=== PATIENT | male | born 1935 | race Caucasian/White ===

== ENCOUNTER → 2019-09-07 14:03 | Outpatient (CLI) | payer MEDICARE, OTHER, SELFPAY ==
[2019-09-07 15:00] LABS: Hematocrit 36.1 % (41-53); Hemoglobin 12.3 g/dL (13.5-17.5); Mean Corpuscular HGB Conc 34.1 % (30-36); Mean Corpuscular Hemoglobin 30.7 PG (26-34); Mean Corpuscular Volume 90.1 fL (80-100); Platelet Count 177 X10^3/uL (150-400); Red Blood Cell Count 4.01 X10^6/uL (4.5-5.9); Red Cell Distribution Width 12.3 % (11.6-14.8)
[2019-09-07 15:59] LABS: Alanine Aminotransferase 25 IU/L (<50); Albumin 4.4 g/dL (3.5-5.0); Albumin Globulin Ratio 1.5 (1.0-2.8); Alkaline Phosphatase 79 U/L (38-126); Aspartate Aminotransferase 24 IU/L (17-59); BUN Creatinine Ratio 23.6 (6-22); Bilirubin Total 0.6 mg/dL (0.2-1.3); Blood Urea Nitrogen 17 mg/dL (9-20); Calcium 10.4 mg/dL (8.4-10.2); Carbon Dioxide 27 mmol/L (22-32); Chloride 94 mmol/L (98-107); Estimated Glomerular Filt Rate > 60.0 mL/min (>60); Glucose 138 mg/dL (80-110); HEMOLYSIS < 15 (0-50); Potassium 4.5 mmol/L (3.4-5.1); Sodium 134 mmol/L (137-145); Total Protein 7.4 g/dL (6.3-8.2)
[2019-09-07 16:44] LABS: Bacteria Urine None Seen
[2019-09-07 17:38] LABS: Appearance Urine UA CLEAR; Bilirubin Urine UA NEGATIVE (NEGATIVE); Color Urine UA YELLOW; Glucose Urine UA NEGATIVE (Negative); Ketones Urine UA TRACE (NEGATIVE); Leukocyte Esterase Urine UA NEGATIVE (NEGATIVE); Nitrite Urine UA NEGATIVE (Negative); Occult Blood Urine UA TRACE-LYSED (Negative); Protein Urine UA NEGATIVE (Negative); Urobilinogen Urine UA 0.2 E.U./dL (0.2); pH Urine UA 6.5 (4.5-8.0)
[2019-09-07 17:51] LABS: RBC Urine 1-5/HPF (0-5/HPF); WBC Urine 0-1/HPF (0-5/HPF)
[2019-09-07 17:52] LABS: Culture Indicated Urine Cult Not Indicated
== END ==
PROVIDERS: PCP Nurse Practitioner Family; Referring Provider Nurse Practitioner Family; Visit Provider Nurse Practitioner Family
DX: R14.0 Abdominal distension (gaseous) (principal)
CPT/HCPCS: 36415; 80053; 81001; 85027

== ENCOUNTER → 2019-09-10 13:43 | Outpatient (CLI) | payer MEDICARE, OTHER, SELFPAY ==
--- NOTE | 2019-09-10 13:45 | DI.US.S_ITS ---
PROCEDURE: US ABDOMEN COMPLETE INDICATIONS: BLOATING,GAS,DISCOMFORT TECHNIQUE: Real-time scanning was performed of the abdominal and retroperitoneal organs, with image documentation. COMPARISON: None. FINDINGS: Liver: Liver is normal in size and homogeneous in echotexture. Hypervascularity is noted within the lovely hepatis region. Gallbladder: Likely sludge is seen within the gallbladder. The gallbladder wall is not thickened, measuring 3 mm or less. No specific pericholecystic fluid is seen. The sonographic Edmonds sign is negative. Biliary ducts: Not well-seen. Pancreas: Visualized portions of the pancreas are sonographically normal. Spleen: Spleen is normal in size and homogeneous in echotexture. Kidneys: Kidneys are normal in size and echotexture. Right kidney measures 11.6 cm long; left kidney measures 11.9 cm long. No hydronephrosis or nephrolithiasis. No solid masses. A lobular cyst can be seen on the mid to lower pole of the left kidney measuring up to 2.5 cm. Aorta: Visualized aorta is normal in caliber at less than 3 cm. Iliacs: Proximal common iliac arteries are normal in caliber at less than 2.5 cm. IVC: Intrahepatic inferior vena cava is patent. Miscellaneous: No free abdominal fluid. Within the subxiphoid region, there is a mass seen that measures approximately 8 x 5.5 x 5 cm. IMPRESSION: There is an apparent 8 cm mass seen within the subxiphoid region, which may be related to a pancreatic neoplasm. A dedicated pancreas protocol CT is now recommended for further evaluation. A lobular cyst of the left kidney can be seen. Likely sludge can be seen within the gallbladder, without additional sonographic signs sinus. Dictated by: Sathya Coleman M.D. on 09/10/2019 at 15:33 Approved by: Sathya Coleman M.D. on 09/10/2019 at 15:37
== END ==
PROVIDERS: PCP Nurse Practitioner Family; Referring Provider Nurse Practitioner Family; Visit Provider Nurse Practitioner Family
DX: R14.0 Abdominal distension (gaseous) (principal); R19.09 Other intra-abdominal and pelvic swelling, mass and lump; N28.1 Cyst of kidney, acquired
CPT/HCPCS: 76700

== ENCOUNTER → 2019-09-14 12:46 | Outpatient (CLI) | payer MEDICARE, OTHER, SELFPAY ==
--- NOTE | 2019-09-14 13:37 | DI.CT.S_ITS ---
PROCEDURE: CT ABDOMEN W CON INDICATIONS: abnormal US mid abd pain TECHNIQUE: After the administration of intravenous contrast, 5 mm thick sections acquired from the diaphragm to the iliac crests during the arterial and portal venous phases. 3 mm coronal and sagittal reformats were performed. For radiation dose reduction, the following was used: automated exposure control, adjustment of mA and/or kV according to patient size. COMPARISON: [facility], US, US ABDOMEN COMPLETE, 09/10/2019, 13:52. FINDINGS: Image quality: Excellent. Lung bases: Lung bases are clear. Heart size is normal. Solid organs: There is a large lobulated hypoenhancing centrally necrotic mass centered within the pancreatic head measuring approximately 7.5 x 6.8 x 7.4 cm in dimension. There is atrophy of the pancreatic body and tail with associated pancreatic ductal dilatation. There is intra-and extrahepatic biliary ductal dilatation secondary to mass effect on the common bile duct. The extrahepatic ducts measure up to 0.8 cm. The mass encases the celiac, hepatic, and splenic arteries with associated mild luminal narrowing. The mass also encases superior mesenteric, portal, and splenic veins at their confluence with associated occlusion. There is associated cavernous transformation in the lovely hepatis with reconstitution of the right and left portal veins. The splenic vein is reconstituted with left abdominal varices. The pancreatic mass also demonstrates extension to the gastric antrum with suspected invasion. Superiorly, there is extension to the inferior left hepatic lobe with effacement of the intervening fat plane and associated peripheral hyper enhancement in the liver suggestive of invasion. The liver demonstrates heterogeneous enhancement during the arterial phase likely due to narrowing of the hepatic artery, portal vein occlusion, and cavernous transformation. There is a small hypoattenuating lesion inferiorly in segment 6 of the right hepatic lobe measuring up to 1.4 x 1.3 cm suspicious for metastatic disease. A small cyst is demonstrated in the right hepatic lobe superiorly. The spleen is enlarged, measuring up to 13.5 cm. There is thickening of the left adrenal gland. Kidneys demonstrate no hydronephrosis. There are bilateral renal cysts including left parapelvic cysts. Peritoneum and bowel: Bowel loops demonstrate normal wall thickness and caliber. No free fluid or air. Nodes and vessels: Multiple prominent mesenteric lymph nodes are demonstrated in the upper abdomen measuring up to 0.8 cm in short axis. Aorta and inferior vena cava are normal in size. Miscellaneous: No ventral hernias. IMPRESSION: 1. Large hypoenhancing centrally necrotic pancreatic head mass is consistent with pancreatic adenocarcinoma. 2. Atrophy of the pancreatic body and tail with associated pancreatic ductal dilatation as well as mild biliary ductal dilatation. 3. Encasement and occlusion of the portal, superior mesenteric, and splenic veins with cavernous transformation in the lovely hepatis associated with reconstitution of the right and left portal veins. Left abdominal varices communicating with the splenic vein are also demonstrated. 4. Encasement and narrowing of the celiac axis including the celiac, hepatic and splenic arteries. 5. Suspected invasion of the gastric antrum and inferior left hepatic lobe. 6. Hypodense lesion in the inferior right hepatic lobe likely representing metastatic disease. 7. 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 Dictated by: Nadir Carey M.D. on 09/14/2019 at 14:19 Approved by: Nadir Carey M.D. on 09/14/2019 at 14:44
--- NOTE | 2019-09-20 13:04 | ONC.MSW ---
Description: Initial Referral Navigation T/C Activity: Called pt to confirm that we've received his referral, introduced myself as the navigator, and briefly explained the ongoing availability of assistance, resource referrals, and support. Confirmed a time for the next urgent initial consult for 09/24, 10:00am. Will continue to monitor for the next steps after this appt.
== END ==
PROVIDERS: PCP Nurse Practitioner Family; Referring Provider Nurse Practitioner Family; Visit Provider Nurse Practitioner Family
DX: R93.5 Abnormal findings on diagnostic imaging of other abdominal regions, including retroperitoneum (principal); R14.0 Abdominal distension (gaseous); K86.89 Other specified diseases of pancreas; K83.8 Other specified diseases of biliary tract; I82.890 Acute embolism and thrombosis of other specified veins; K76.9 Liver disease, unspecified; R59.0 Localized enlarged lymph nodes
CPT/HCPCS: 74160; Q9967

== ENCOUNTER → 2019-10-16 14:00 | Oncology outpatient (ONC) | payer MEDICARE, OTHER, SELFPAY ==
--- NOTE | 2019-09-25 10:38 | ONC.MSW ---
Description: New Pt F/F Visit Activity: Met briefly with both and pt prior to their initial consult visit. Pt is being referred for a newly identified pancreatic mass. Pt has been experiencing progressive weakness, fatigue, intensifying pain, weight loss and decreased appetite. He's expressed to his PCP that he's not sure that he's interested in any treatment in oncology, however he was willing to come and meet with Dr. Perez to learn about his options. [facility] [employer] [facility] will continue to monitor for treatment plan goals and needs.
--- NOTE | 2019-09-25 10:39 | P.CONONC_ITS ---
History of Present Illness - Data of Consult Patient: new to practice Consult date: 09/25/19 Requesting Physician: ZACH Johnson Primary Care Provider: ZACH Johnson - Consult Narrative Reason for consult: Pancreatic cancer Narrative: Marina Rendon is a 84 year old male who came in here today accompanied by his . According to patient and patient's , patient was diagnosed with tongue cancer in 2017 and was evaluated at [facility] where patient underwent tongue resection and neck lymph node dissection. Patient said that after the surgery, the tongue wound took quite a long time to heal. And he is still having tender this of the tongue. On 09/07/2019, patient was evaluated by his primary care provider ZACH Escalera because of discomfort in the stomach for the proceeding 5 weeks. In addition, patient was also complaining loss of appetite and excessive gas. Symptoms were worse after eating. Patient said that he had weight loss at the same time. Previously he weighed about 160 lb. But now 137 lb. On 09/10/2019, patient underwent ultrasound abdomen complete that showed an apparent 8 cm mass within the subxiphoid region. Therefore on 09/14/2019, patient underwent CT abdomen with contrast. It showed a large hypoenhancing centrally necrotic pancreatic head mass with atrophy of the pancreatic body and tail with associated pancreatic ductal dilatation and mild biliary ductal dilatation. It also showed encasement and occlusion of the portal, superior mesenteric, and splenic veins with cavernous transformation in the portal hepatic us associated with reconstitution of the right and left portal veins. Left abdominal varices communicating with the splenic vein are also demonstrated. Encasement and narrowing of the celiac axis including the celiac, hepatic and splenic arteries were noted. Suspected invasion of the gastric antrum and inferior left hepatic lobe was noted. Hypodense lesion in the inferior right hepatic lobe was noted suspicious for metastatic disease. Prominent mesenteric lymph nodes noted suspicious for metastatic disease. Patient was referred here for further evaluation. ZACH Johnson Patient reports pain?: Yes Home Medications and Allergies Home Medications Medication Instructions Recorded Confirmed Type aspirin 325 mg tablet 650 mg PO Q4-6H PRN 09/19/19 09/25/19 History oxycodone 5 mg tablet 5 mg PO BID PRN #60 tab 09/19/19 09/25/19 Rx Allergies Allergy/AdvReac Type Severity Reaction Status Date / Time No Known Drug Allergies Allergy Unverified 09/19/19 11:25 Medical History - Medical, Surgical, Family History Medical History: Medical History (Last Updated 09/19/19 @ 12:36 by ZACH Johnson) Abdominal bloating Oral cancer Onset Date: ~2015 Pancreatic neoplasm Onset Date: 08/2019 Surgical History: Surgical History (Last Updated 12/20/18 @ 21:04 by Mona Ramirez) Anesthesia History of oral surgery Onset Date: ~07/2015 History of surgery Onset Date: ~07/2015 Family History: Family History (Last Updated 09/25/19 @ 10:58 by Phillip Perez MD) Sister Breast cancer - Social History Smoking Status: Never smoker Substance Use Type: does not use Alcohol Intake: former (heavy hard liquior 30 years ago.) Review of Systems All systems PM: reviewed and no additional remarkable complaints except as stated Exam Vital signs: 09/25/19 10:59 Last Vital Signs Temp 98.2 F 09/25/19 10:40 Pulse 89 09/25/19 10:40 Resp 16 09/25/19 10:40 BP 149/86 H 09/25/19 10:40 Pulse Ox 97 09/25/19 10:40 Narrative: ECOG 1 Vitals above reviewed Constitutional: well developed, thin, and well groomed, not in any acute respiratory distress, pleasant and cooperative. HEENT: NCAT, EOMI, PERRLA. Anicteric sclera. Neck: Supple and symmetrical, no palpable masses. No palpable thyromegaly. Respiratory: No use of accessory muscles. CTAB, no wheezes. Cardiovascular: RRR, S1 and S2 normal, no M/G/R. No edema of lower extremities. Abdomen: Soft, NTND, mild tenderness in the epigastric region noted. No palpable masses. No palpable hepatosplenomegaly. No hernia. Lymphatic: no palpable palpable lymph nodes in the neck, or axillae Musculoskeletal: normal gait and station Skin: No rashes, lesions, or ulcers. No induration, or subcutaneous nodules. Neurological: CN II-XII grossly intact. No focal motor or sensory deficit. Psychiatric: Normal judgment and insight. AOx3. Normal memory (recent and remote). Normal mood and affect. Results - Labs None for review. Assessment and Plan (1) Pancreatic neoplasm Overview: 84-year-old gentleman with newly diagnosed pancreatic head cancer, locally advanced and likley metastatic per CT abd on 09/14/2019. Clinically, he presented with abdominal discomfort, weight loss, loss of appetite. Of note, patient has history of tongue cancer status post surgical resection and neck lymph node dissection in 2017. Assessment: I explained to the patient that clinical symptoms and the CT findings are consistent with the diagnosis of pancreatic cancer. The CT findings have shown that the cancer has invaded the portal vein, the nerve plexus, and the mesenteric arteries as well as the liver. I do not think it is resectable pancreatic cancer. Therefore it is not curable. I explained to the patient that the goal of any subsequent therapy is to help delay the progression of the cancer while at the same time to keep his quality of time as best as we can. I talked with him that the expected life expectancy probably measured in months if not treated or maybe 1-2 years if patient can receive and tolerate active anticancer chemotherapy or/and radiation therapy. Marina expressed repeatedly that he is not interested in any chemotherapy. I explained to the patient that some of the pancreatic cancer may harbor a molecular markers that can be targeted, for example, mismatch repair enzyme deficiency or BRCA1/2. I would recommend laboratory tests as well as biopsy. I talked with them that these results can provide with more information and support more informed decision-making. However patient expressed that he is also not interested in any invasive examinations or procedures. Therefore, I talked with him about palliative/hospice care. I talked with them that some of the studies in other types of cancer support the role of palliative/hospice care in helping people live longer and live better. Patient and patient's said they are going to talk about it and think about it and come back to talk with me again in about 2 weeks. As far as the pain control, I talked with the patient that it will be safe to use oxycodone 5 mg every 4-6 hours on as-needed basis. Plan: Continue oxycodone 5 mg scales 4-6 hours as needed pain. RTC in 2 weeks.
[2019-09-25 10:40] VITALS: BP 149/86; PULSE 89; RESP 16; TEMP 36.8; O2SAT 97
--- NOTE | 2019-10-08 16:52 | PC.NURSE ---
CONSTIPATION; patient called reporting no stool since 5 or 6 days. He has not been using the oxycodon which was prescribed 09/24 and feels his pain is managed well with aspirin or tylenol. Abdomen he states feels full but not hard, no voimiting, a touch of nauseau, he is eating little and passes some gas. He eats fruit and drinks prune juice, he tried an enema this am but could not get it past hard stool in rectum. This nurse suggested smooth move tea tonight before bed, miralax at breakfast and if no results by noon to take a bisacodyl. If still no results by afternoon he should go to ER or call here. He was advised to go to ER directly if developing a hard abdomen or increased abdominal pain. This nurse also encouraged him to call and speak with Niurka more about hospice.
--- NOTE | 2019-10-09 16:59 | PC.NURSE ---
CONSTIPATION: THIS NURSE CALLED PATIENT RE RESULTS OF YESTERDAY'S PLAN. hE STATED HE HAD GOOD RESULTS AND IS FEELING BETTER. HE WAS INSTRUCTED TO CONTINUE WITH SMOOTH MOVE TEA EVENINGS, PRUNE JUICE MORNINGS, COLACE TWICE A DAY AND MIRALAX NEEDED. HE STATED UNDERSTANDING AND THAT HE WOULD DO THIS. HE ALSO STATED THAT THEY WILL CALL [facility] WHEN THEY FEEL READY TO TALK ABOUT THIS.
[2019-10-16 14:31] VITALS: BP 130/80; PULSE 99; RESP 18; TEMP 37.1; O2SAT 96
--- NOTE | 2019-10-16 15:52 | ONC.MSW ---
Description: Hospice Referral Activity: Faxed referral and clinicals to [facility], per pt and Dr. Steele request.
--- NOTE | 2019-10-16 18:20 | ONC.PN ---
PN -Subjective Interval history: Mr. Rendon presents today for follow-up of his presumed metastatic pancreatic cancer. He is a very pleasant 84-year-old gentleman who presented last month with a brief history of postprandial epigastric pain, anorexia, and a 23 lb weight loss. Ultrasound on September 09 showed an [address] scan on September 13 showed a mass in the head of the pancreas with mild biliary ductal dilatation, encasement of multiple vessels, mesenteric lymphadenopathy, liver metastases, and direct extension into the stomach and liver. On September 24 he was seen in consultation by Dr. Perez and counseled about the standard of care of biopsy, next generation sequencing, and the possibility of palliative chemotherapy. He wanted to think things over and comes today for a follow-up visit. He continues to be bothered by epigastric pain. He has some pain in his mid back but it is relatively mild compared to the epigastric discomfort. It tends to be worse when he eats. He has taken Tylenol on aspirin which do provide some benefit and tried at home but did not like the way it made him feel. He was constipated but is on a regimen of Colace, MiraLax, smooth move herbal tea and suppositories which has helped. He has noticed some orthostatic dizziness. He had a fall, most recently about 6 months ago. He continues to be plagued by progressive weakness, weight loss and anorexia. He does not have nausea, vomiting, fever, chills, sweats, cough or shortness of breath. All other systems are negative. Past medical history 1. 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 2. He is a never smoker only an occasional drinker. He is accompanied by his who is very supportive. 3. His sister had breast cancer. Family history is otherwise negative. 4. Meds and allergies are as noted in the appropriate chart section - Patient Self-Reported Symptoms SR Constitution: Chills, Weight loss/gain, Fatigue/Malaise SR eye issues: Vision changes SR ears, nose, mouth, throat issues: Difficulty swallowing, Changes in taste, Hoarseness SR respiratory issues: Mucous SR Cardiovascular issues: Dizzy/lightheaded SR Skin issues: Dry skin SR Gastrointestinal issues: Poor or no appetite, Change in bowel pattern, Constipation, Abdominal pain SR Genitourinary issues: Sexual difficulties SR Musculoskeletal issues: Back or neck pain, Cold hands or feet, Difficulty walking SR Neuro issues: Lightheaded/dizzy, Difficulty balancing SR Endocrine issues: Cold intolerance, Excessive urination Home Medications and Allergies Home Medications Medication Instructions Recorded Confirmed Type aspirin 325 mg tablet 650 mg PO Q4-6H PRN 09/19/19 10/16/19 History oxycodone 5 mg tablet 5 mg PO BID PRN #60 tab 09/19/19 10/16/19 Rx acetaminophen [Tylenol Extra 1,000 mg PO BID 10/16/19 10/16/19 History Strength] morphine 5 mg PO Q4H PRN #30 ml 10/16/19 Rx Allergies Allergy/AdvReac Type Severity Reaction Status Date / Time No Known Drug Allergies Allergy Unverified 09/19/19 11:25 Exam Vital signs: Vital Signs Temp Pulse Resp BP Pulse Ox 10/16/19 14:31 98.8 F 99 H 18 130/80 96 Intake and Output 10/16/19 10/16/19 10/16/19 07:59 15:59 23:59 Other: Weight 58.6 kg Patient Weight 10/16/19 23:59 Weight 58.6 kg Narrative: He was awake, alert and oriented x3. Lungs were clear without wheezes or rales. There was no lymphadenopathy in the cervical, supraclavicular axillary regions. Heart showed a regular rate and rhythm without murmur, gallop or rub. The abdomen showed a palpable mass extending about 8 cm below the xiphoid process in the midline. It was tender and pressure over this area reproduces abdominal pain. There was no evidence of phlebitis in the lower extremities. Assessment and Plan (1) Pancreatic neoplasm Overview: 84-year-old gentleman with newly diagnosed pancreatic head cancer, locally advanced and likley metastatic per CT abd on 09/14/2019. Clinically, he presented with abdominal discomfort, weight loss, loss of appetite. Of note, patient has history of tongue cancer status post surgical resection and neck lymph node dissection in 2017. Assessment: I explained to the patient that clinical symptoms and the CT findings are consistent with the diagnosis of pancreatic cancer. The CT findings have shown that the cancer has invaded the portal vein, the nerve plexus, and the mesenteric arteries as well as the liver. I do not think it is resectable pancreatic cancer. Therefore it is not curable. I explained to the patient that the goal of any subsequent therapy is to help delay the progression of the cancer while at the same time to keep his quality of time as best as we can. I talked with him that the expected life expectancy probably measured in months if not treated or maybe 1-2 years if patient can receive and tolerate active anticancer chemotherapy or/and radiation therapy. Marina expressed repeatedly that he is not interested in any chemotherapy. I explained to the patient that some of the pancreatic cancer may harbor a molecular markers that can be targeted, for example, mismatch repair enzyme deficiency or BRCA1/2. I would recommend laboratory tests as well as biopsy. I talked with them that these results can provide with more information and support more informed decision-making. However patient expressed that he is also not interested in any invasive examinations or procedures. Therefore, I talked with him about palliative/hospice care. I talked with them that some of the studies in other types of cancer support the role of palliative/hospice care in helping people live longer and live better. Patient and patient's said they are going to talk about it and think about it and come back to talk with me again in about 2 weeks. As far as the pain control, I talked with the patient that it will be safe to use oxycodone 5 mg every 4-6 hours on as-needed basis. Plan: Continue oxycodone 5 mg scales 4-6 hours as needed pain. RTC in 2 weeks. We reviewed the fact that Mr. Rendon has a clinical presentation strongly suggestive of metastatic, incurable pancreatic cancer. The distribution of masses, metastatic pattern, and time course are all consistent with this diagnosis. I explained the usual approach would be to do a biopsy. As had been discussed with him by Dr. Perez we reviewed the fact that this would confirm the diagnosis. There is a small chance that he has something other than adenocarcinoma of the pancreas. Examples would include a neuroendocrine tumor or lymphoma. I explained that the vast majority of patients with his presentation would have adenocarcinoma of the pancreas. A biopsy would also allow molecular testing to look for potentially targetable mutations such as BRCA 1 and 2 lesions, mismatch repair protein expression deficiency, or other molecular findings. I explained that if he did have metastatic pancreatic cancer, it is not a curable disease. Actionable mutations would be found in a minority of individuals. In the majority of patients, is chemotherapy would be standard of care. This would include regimens like FOLFIRINOX or gemcitabine Abraxane. Mr. Rendon has a frail geriatric status and I do not think that he would be a candidate for chemotherapy Mr. Rendon has will and his have his situation in detail. He does not want to undergo a biopsy or any specific anticancer therapy. His main focus is his comfort and quality of life. I reassured him would be respectful of his wishes. We discussed his pain control. He is currently taking 2 aspirin at bedtime and 2 Tylenol during the day. He does derive some relief from this. I explained that he could increase his bedtime aspirin from 2-3. Arm we discussed the fact that he would be appropriately treated with a narcotic analgesics. He previously tolerated oxycodone poorly. He was started on morphine liquid 20 mg per 5 mL with a prescription sent to [facility]. He was instructed to start with 5 mg every 4 hours and to take the medicine on a regular basis. I explained the goal of treating cancer-related pain is to suppress the pain rather than waiting as long as possible between doses of analgesics. We reviewed the fact that the narcotic could worsen his constipation and he would likely need to adjust his stool softener laxative program. We also discussed the fact that his condition is changing quickly. His current health care model is centering his care at the doctor's office and hospital. We reviewed the availability of the [facility] hospice program and that would be intended to centers care at home and support him and his family. This would be an appropriate service to access if his goal is to pursue good symptom control, staying at home, and not pursuing aggressive anticancer treatments. He reaffirmed that that is his wish and was amenable to a hospice referral. We discussed the components of the Medicare hospice benefit, the fact that would start with an informational visit, the fact that he could opt out of hospice care should he choose to do so, and the rationale for recommending this program. This referral will be made today. He does have some back pain but is main pain is epigastric. Chronic, I do not think that he would benefit from a celiac plexus block at this time. He and is had multiple questions that were answered in detail. I personally spent 42 minutes in today's [id number] visit with greater than 50% of the time spent in counseling regarding the issues outlined above including his presumptive diagnosis of pancreatic cancer, the presentation with metastatic disease, other potential diagnostic considerations, the rationale for considering a biopsy with next generation sequencing, potential treatment options of adenocarcinoma the pancreas is confirmed, other options including hospice care, and formulation of his pain control strategy. Although no specific return appointment has been scheduled to this office, we would be happy to see him back at any time if we could be of assistance in his care.
--- NOTE | 2019-10-22 08:36 | PC.NURSE ---
Spoke with pt about changing pain management to pills rather than liquid. Rx ready to be picked up.
== END ==
PROVIDERS: PCP Nurse Practitioner Family; Referring Provider Nurse Practitioner Family; Visit Provider Internal Medicine Hematology & Oncology
DX: C25.0 Malignant neoplasm of head of pancreas (principal); C78.7 Secondary malignant neoplasm of liver and intrahepatic bile duct; Z85.810 Personal history of malignant neoplasm of tongue
CPT/HCPCS: 99204; 99214; 99215

== ENCOUNTER 2019-11-22 16:10 | Inpatient (IN) | payer MEDICARE, OTHER, SELFPAY ==
[2019-11-22 16:19] VITALS: BP 101/57; PULSE 99; RESP 16; TEMP 36.7; O2SAT 97
[2019-11-22 16:20] VITALS: BP 101/57; PULSE 99; RESP 16; TEMP 36.7; O2SAT 97
--- NOTE | 2019-11-22 17:27 | ED_ITS ---
HPI - Recheck/Abnormal Lab/Rx General Chief Complaint: Recheck/Abnormal Lab/Rx Stated Complaint: Coordinator Mining [employer] Time Seen by Provider: 11/22/19 16:41 Source: EMS Mode of arrival: EMS History of Present Illness HPI narrative: 84-year-old gentleman with widely metastatic pancreatic cancer previously on hospice and failing with increasing home care needs an inability to control pain at home. His has revoked hospice and brought him into the emergency room requesting admission for pain control, palliative care with anticipation that depth will be imminent. Related Data Home Medications Medication Instructions Recorded Confirmed aspirin 325 mg tablet 650 mg PO Q4-6H PRN 09/19/19 10/16/19 acetaminophen [Tylenol Extra 1,000 mg PO BID 10/16/19 10/16/19 Strength] Previous Rx's Medication Instructions Recorded oxycodone 5 mg tablet 5 mg PO BID PRN #60 tab 09/19/19 morphine 5 mg PO Q4H PRN #30 ml 10/16/19 morphine 15 mg PO Q6H PRN #60 tab 10/22/19 Allergies Allergy/AdvReac Type Severity Reaction Status Date / Time No Known Drug Allergies Allergy Unverified 09/19/19 11:25 Review of Systems Review of Systems Narrative: Continued weight loss, no fevers, no cough, generalized abdominal p ain unchanged from his baseline, decreased appetite, complains of dry mouth, decreased urine output decreased stooling without constipation, increased fatigue, no vomiting, no jaundice Patient History Medical History (Updated 11/22/19 @ 23:58 by Bianca Eugene MD) Abdominal bloating (Acute) Oral cancer (Acute ~2015) Pancreatic neoplasm (Acute 08/2019) Surgical History Anesthesia (Acute) History of oral surgery (Acute ~07/2015) History of surgery (Acute ~07/2015) Family History Sister Breast cancer Social History Smoking Status: Never smoker second hand exposure: No alcohol intake: former substance use type: does not use Smoking Status: Never smoker Exam Narrative Exam Narrative: General: Cachectic gentleman minimally interactive with exam HEENT: Dry mucous membranes, normal sclera with reactive pupils, Neck: supple Respiratory: Minor scattered wheezes throughout upper lung garcia, shallow breathing, no rhonchi. Cardiac: Tachycardic with Regular rate and rhythm no murmurs no bruits Abdomen: Scaphoid with mid epigastric abdominal pain with palpation, no flank pain Skin: Very thin, dry multiple bruises in various stages of healing Neurologic: Fatigued with global weakness but no obvious asymmetries or abnormalities Extremities: No trauma, prolonged capillary refill Initial Vital Signs Initial Vital Signs: Vital Signs Temperature 98.0 F 11/22/19 16:19 Pulse Rate 99 H 11/22/19 16:19 Respiratory Rate 16 11/22/19 16:19 Blood Pressure 101/57 L 11/22/19 16:19 Pulse Oximetry 97 11/22/19 16:19 Course Orders Ordered: ED Orders 11/22/19 17:12 Consult to PARTS COUNTERPERSON - Coordinator [employer] Stat Hydromorphone HCl (Dilaudid) 1 mg IV Q2H PRN PRN Reason: Pain, Severe (7-10) Lorazepam (Ativan) 1 mg IV Q1HR PRN PRN Reason: Agitation/Anxiety Last Admin: 11/22/19 21:27 Dose: 1 mg Documented by: VANESSA Methadone HCl (Methadone Intensol) 2.5 mg PO BID VENESSA Last Admin: 11/22/19 21:29 Dose: 2.5 mg Documented by: JOÃO Morphine Sulfate (Morphine) 15 mg SL Q1H PRN PRN Reason: Pain, Moderate (4-6) Last Admin: 11/22/19 17:46 Dose: 15 mg Documented by: ONUR Morphine Sulfate (Morphine) 2 mg IV Q30MIN PRN PRN Reason: Pain, Moderate (4-6) Vital Signs Vital signs: Vital Signs - 8 hr 11/22/19 16:19 11/22/19 16:20 11/22/19 18:27 Temperature 98.0 F 98.0 F 97 F L Pulse Rate 99 H 99 H Respiratory Rate 16 16 Blood Pressure 101/57 L Blood Pressure [Left Arm] 101/57 L Pulse Oximetry 97 97 11/22/19 18:47 Temperature Pulse Rate Respiratory Rate Blood Pressure Blood Pressure [Left Arm] Pulse Oximetry 98 MDM - Recheck/Abnormal Lab/Rx MDM Narrative Medical decision making narrative: 84-year-old gentleman with widely metastatic pancreatic cancer clearly nearing the end his life. Had been on hospice care but pain was unable to be controlled at home. brings him in to the emergency room after revoking his hospice care asking for help with pain control and hospital admission. 620 pm care us reviewed with Dr Frost. Will admit to the hospital, pallilative care for intractable pain at end of life with anticipation of imminent. Discharge Plan Departure Patient Disposition: Admitted As Inpatient Clinical Impression: Intractable pain, Pancreatic adenocarcinoma Discharge Date/Time: 11/22/19 19:20 Referrals: Mayra Escalera ARNP [Primary Care Provider] - Admit Date/Time: 11/22/19 19:02 Admit Provider: Tracy Frost
[2019-11-22] MEDS: MORPHINE 10 MG/0.5 ML ORAL SYRINGE 15 MG SL (17:46)
--- NOTE | 2019-11-22 18:05 | CM.SWNOTE ---
CLAIMS SPECIALIST note CLAIMS SPECIALIST consult requested for patient. Patient is a 84 y/o male who presents to ED via EMS requesting to in hospital. Patient's and son-in-law are at bedside. CLAIMS SPECIALIST enters room and explains role. Patient is awake but does not speak to CLAIMS SPECIALIST during visit. CLAIMS SPECIALIST inquires about today's presentation to ED, and patient's son-in-law reports that patient has been receiving hospice care through [facility], but it's getting to be too much for patient's . Patient's states they want to be discharged from hospice and for patient to in hospital. Patient's requests a cathater and pain medication for patient, and CLAIMS SPECIALIST informs CAMELIA Carrasco. CLAIMS SPECIALIST calls [facility] at [phone] and speaks to Karen. Karen informs CLAIMS SPECIALIST that patient is very near , and that patient and family have planned for patient to not in the home since day one. Karen reports that family does not want patient's associated with they're home. CLAIMS SPECIALIST checks in with CAMELIA Carrasco and provides update. RN states that they will work to admit patient. CLAIMS SPECIALIST reviews paper chart and sees that patient's needs to date a form to be sent to [facility] in order to discharge patient from hospice. CLAIMS SPECIALIST enters room and checks in with family. Family states that medical team is getting medication for patient and state no other needs at this time. Patient's dates revocation of hospice form and CLAIMS SPECIALIST faxes form to [facility]. CLAIMS SPECIALIST places form back in paper chart with fax confirmation. Pl: Patient to be admitted to hospital with comfort care measures. SOFIA Simmons
[2019-11-22 18:27] VITALS: TEMP 36.1
--- NOTE | 2019-11-22 18:45 | PC.NURSE ---
Patient has a patent 22ga in left forearm. He complains of back pain with HOB raised but complains of SOB with laying flat. Patient was elevated to 25 degrees and reports better work of breathing and very little back pain.
[2019-11-22 18:47] VITALS: O2SAT 98
[2019-11-22 20:40] VITALS: BMI 14.3
--- NOTE | 2019-11-22 20:56 | PM.HP.1 ---
History of Present Illness History of Present Illness Date Patient Seen: 11/22/19 Chief complaint: Enrollment Specialist Narrative: This is an 84 year old male with end stage metastatic Pancreatic Carcinoma. He has known metastasis to the lungs and to the brain. He has been on hospice since his diagnosis back in August, living at home with his . This morning when his found him, head down in the portable commode, she decided to bring him to the hospital due to weakness with intractable pain and her inability to continue caring for him at home on hospice. He has been on methadone 2.5 mg twice a day but has not been dosed with the morphine because he gets ?fidgety? when he takes morphine. She reports that an admission to the hospice house in [place] was considered but was impractical for his family who did not feel they could drive that distance. She says she is not aware of the GIP benefit for inpatient care on hospice and so she apparently signed a hospice revocation this morning. She is insisting that he receive a Herrera catheter. She tells me that she rejected the possibility of home health aides caring for him at home because ?they would not do anything more than hospice does at their visits. Patient History Medical History (Updated 11/22/19 @ 18:23 by Bianca Eugene MD) Abdominal bloating (Acute) Oral cancer (Acute ~2015) Pancreatic neoplasm (Acute 08/2019) Surgical History (Updated 09/25/19 @ 10:49 by Phillip Perez MD) Anesthesia (Acute) History of oral surgery (Acute ~07/2015) History of surgery (Acute ~07/2015) Family & Social History Family History (Updated 09/25/19 @ 10:58 by Phillip Perez MD) Sister Breast cancer Social History: Prior Living Arrangements House Safety & Behavioral: Feels Safe in Current Yes Environment Been Physically Hurt or No Threatened By a Person Suicidal Ideation Description None Suicide Plan Description No Plan Tobacco & Substance use: Smoking Status Never smoker alcohol intake former Substance Use Type does not use Comment: His backup decision maker is his Heath Rendon. Meds Home Medications and Allergies Home Medications Medication Instructions Recorded Confirmed Type aspirin 325 mg tablet 650 mg PO Q4-6H PRN 09/19/19 10/16/19 History oxycodone 5 mg tablet 5 mg PO BID PRN #60 tab 09/19/19 10/16/19 Rx acetaminophen [Tylenol Extra 1,000 mg PO BID 10/16/19 10/16/19 History Strength] morphine 5 mg PO Q4H PRN #30 ml 10/16/19 Rx morphine 15 mg PO Q6H PRN #60 tab 10/22/19 Rx Allergies Allergy/AdvReac Type Severity Reaction Status Date / Time No Known Drug Allergies Allergy Unverified 09/19/19 11:25 Review of Systems Review of Systems Narrative: Positive for abdominal pain, confusion, weakness Negative for fevers, coughing, vomiting, joint swelling, bleeding, seizures. ROS: Yes All systems reviewed with the patient and are negative except as otherwise documented Exam Vital Signs (past 8 hours): - 11/22/19 16:19 11/22/19 16:20 11/22/19 18:47 Temperature 98.0 F 98.0 F Pulse Rate 99 H 99 H Respiratory Rate 16 16 Blood Pressure 101/57 L Blood Pressure [Left Arm] 101/57 L Pulse Oximetry 97 97 98 Oxygen Delivery Method Nasal Cannula Oxygen Flow Rate 2 Narrative Exam Narrative: He appears sedated and in quite a bit of distress from abdominal pain. Eye exam is limited by comfort measures and sedation. Throat looks quite dry There is no swelling in the neck Heart is distant, regular rate and rhythm without murmur Lungs appear to be clear Abdomen is sunken/extremely cachectic and diffusely tender There is no ankle edema There is no jaundice or other rash Neurological exam is notable for sedation without obvious seizure activity. Assessment & Plan Assessment & Plan narrative: Metastatic Prostate Cancer, present on admission. Active -continue methadone and add IV Dilaudid for intractable pain of metastatic disease -additional comfort care measures as indicated -his prognosis appears to be less than 72 hours. Terminal status, present on admission. Active -his prognosis appears to be less than 72 hours Comfort Care for Intractable Cancer Pain, present on admission. Active -comfort care orders including anxiolytics and pain medications are initiated and will be titrated as needed. Quality VTE Deep Vein Thrombosis/Pulmonary Embolism Present on Admission: No
[2019-11-22 21:26] VITALS: O2SAT 98
[2019-11-22] MEDS: LORazepam 2 MG/ML INJ 1 MG IV (21:27)
[2019-11-22] MEDS: METHADONE INTENSOL 10 MG/ML ORAL.CONC 2.5 MG PO (21:29)
[2019-11-22 22:12] LABS: COVID19 -Nasal RAPID Negative (Negative)
--- NOTE | 2019-11-22 23:14 | PC.NURSE ---
Admit/Evening SHift Notye- Patient arrived to room via stretcher from ER. Slider board used to transfer patient to bed. Admit questions done, medications reviewed, physical assessment and skin check done. stay night in room, bed a bed in window seat. merchant cath odered for comfort. Merchant placed, patient tolerated. safety measures in place. call joseph and phone within reach. bed alarm activated. call joseph an phone within reach.will continue to monitor.
--- NOTE | 2019-11-23 09:24 | PC.NURSE ---
Addendum entered by Jena Murray R.N. 11/23/19 15:24: With last pt reposition by APPLICATIONS PROGRAMMER, left hip was noted to have tennis ball sized redness. RR 10-11 bpm. Pt's Doreen and son in/out of pt's room. Pt's son was present when Doreen went home. No further voiced concerns. Original Note: Day Shift- Bilateral feet and ankles are cool to touch, left hand warm under blanket, right hand out of blankets. Pt asleep, RR 11 bpm, pt does make intermittent gulp like sounding noise, pt's states that is normal for pt. Pt's Doreen at bedside, who wants pt to be left in position if sleeping and when pt awakes, plan for bed bath. No other needs at this time, room temperature increased on thermometer.
[2019-11-23] MEDS: METHADONE INTENSOL 10 MG/ML ORAL.CONC 2.5 MG PO ×2 (09:38→20:41)
--- NOTE | 2019-11-23 13:16 | P.PN_ITS ---
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 The patient is comatose. He appears comfortable. The patient appears rather imminent and will likely in the hospital within the next 24 to 48 hours. Exam Vital Signs (past 8 hours): Oxygen Delivery Method Room Air Oxygen Flow Rate 2 Narrative Exam Narrative: General: Elderly cachectic male lying in bed, comatose, appears comfortable, patient is dying and imminent. HEENT: Normocephalic, atraumatic. Bitemporal muscle wasting Cardiovascular: Heart sounds distant but appears rhythm and rate without murmurs, rubs, or gallops appreciated Pulmonary: Clear to auscultation bilaterally without crackles, wheezes, or rhonchi. Praveen-Grijalva breathing present. 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 1. End-stage metastatic pancreatic cancer, present on admission. Active. -Continue palliative care. 2. Palliative care for intractable cancer pain, present on admission. Active. -Continue palliative care medications including: methadone concentrate 2.5 mg twice daily, morphine 2 mg IV every 30 minutes or morphine 15 mg sublingual every 1 hour as needed for breakthrough pain, lorazepam 1 mg every 1 hours neede d for anxiety or agitation, ondansetron 4 mg every 4 hours as needed for nausea, and scopolamine patch every 72 hours as needed for 6 excessive secretions. Code status: DNR/DNI VTE prophylaxis: Contraindicated Disposition: Patient likely to in the next 24-48 hours. Quality VTE Deep Vein Thrombosis/Pulmonary Embolism Present on Admission: No
--- NOTE | 2019-11-23 14:00 | CM.IDA ---
Initial DCP Assessment Note Patient is an 84 yo male, resident of [place]. patient brought in by spouse, patient with widely metastatic pancreatic cancer previously on hospice and failing with increasing home care needs an inability to control pain at home. Patient admitted for pain management;patient is expected to pass during this hospitalization. PCP: Monique Escalera Payer: FLORENCIO/Shilpa Reviewed chart and reviewed needs w/CAMELIA Bella. She explained patient's pain seems to be well managed and spouse is at bedside and states no needs at this time. This RANGE SCIENTIST will stay out of patient's room for now, will remain available in the case that any needs or concerns arise. SOFIA Edge
--- NOTE | 2019-11-23 15:51 | PC.NURSE ---
Addendum entered by Jael Rothman R.N. 11/23/19 22:55: SET ILLUSTRATOR does final rounds and reports to this board writer both pt and pt's spouse are asleep in pt's room. Addendum entered by Jael Rothman R.N. 11/23/19 21:57: [id number] Pt's spouse summons this board writer. States pt is restless in bed. Discussed action of lorazepam with pt's spouse, Tamica, and this was administered. Pt does move self in bed. Is cachectic. Methadone oral solution administered. Spouse performs oral care. Pillows to support and cushion bony prominences in this patient while in bed. Herrera with dark candy urine. Addendum entered by Jael Rothman R.N. 11/23/19 20:08: Pt's son now with pt. Pt remains in bed on right side resting quietly with shallow respirations. We're okay for now. Addendum entered by Jael Rothman R.N. 11/23/19 17:43: No change in pt's position or facial expression. Spouse remains vigilent in room on window cot. Addendum entered by Jael Rothman R.N. 11/23/19 16:15: Asked permission of pt's spouse to listen to patient's heart and lungs. Pt's spouse, Doreen, requests this board writer not disturb patient in any manner. This request was honored. Spouse reports pt resting very peacefully and comfortably at this time. Herrera bag with scant amount dark candy urine visible hanging from bedside rail. Pt on right side in bed with even and unlabored respirations. Inquired of pt's spouse if desires wind turbine machinist visit and spouse declines at this time. [facility] has strong bahai and family support. Staff made available to this family and pt's spouse. Comfort cart present in pt's room for family members. Original Note: Pt resting quietly in bed on right side with eyes closed and mouth open. Pt's spouse is present in pt's room and denies needs or concerns.
[2019-11-23] MEDS: LORazepam 2 MG/ML INJ 1 MG IV (20:46)
[2019-11-23] MEDS: SODIUM CHLORIDE 0.9% FLUSH 10 ML IV (20:59)
--- NOTE | 2019-11-24 05:40 | PC.NURSE ---
Pt resting in bed on his left side. Does not rouse to light touch on his shoulder. Spouse asleep on the window sofa. Spouse awoke during checks and again stated she did not want Pt moved, assessed, or vitals taken. Visible chest rise during respirations however breathing is shallow. Pt BLE are cool to the touch. Spouse agrees to call for assistance as needed.
--- NOTE | 2019-11-24 09:59 | DIET.PN ---
Dietary Progress Note RD consult initiated for low BMI and significant weight loss. Pt has Severe Acute PCM r/t terminal cancer aeb 24.2% unintentional wt loss in 1 mo (severe), BMI 14.3 (severe), pt came off hospice to be admitted for intractable px.
[2019-11-24] MEDS: METHADONE INTENSOL 10 MG/ML ORAL.CONC 2.5 MG PO ×2 (10:00→20:45)
[2019-11-24] MEDS: SODIUM CHLORIDE 0.9% FLUSH 10 ML IV ×2 (10:00→20:45)
[2019-11-24] MEDS: LORazepam 2 MG/ML INJ 1 MG IV ×2 (12:01→20:45)
[2019-11-24] MEDS: SCOPOLAMINE 1 PATCH TOP (13:50)
--- NOTE | 2019-11-24 16:00 | PC.NURSE ---
Addendum entered by Jael Rothman R.N. 11/24/19 21:36: This sign writer letterer or painter in to do rounds and pt's spouse greets this sign writer letterer or painter @ the patient's door. Spouse states pt is becoming restless. Explained to spouse, Tamica, and now another male family member in room, will administer methadone in a sublingual fashion as well as iv ativan. Spouse verbalizes understanding and agreement. IV leaks slightly with flush. Able to administer drug, but leaking increases with saline flush following drug administration. Explained to family iv is no longer functional/usable and made offer to restart in another vein OR move pt in direction of all sublingual medications. Spouse is indecisive and so no action taken at this time other than to remove iv to pt's left forearm. Herrera catheter cleansed with hibiclens surgical scrub diluted in warm water and advanced without difficulty. No coiling of tube felt in shaft of penis. No reaction from pt. Instilled 40 cc's normal saline into catheter and irrigated easily. Withdrew same amount of candy colored urine. No resistance or reaction from pt. Repositioned pt onto left side as per spouse's request. Oral care provided. Encouraged family member to call for needs/concerns. Awaiting spouse's directive re restart of iv. Addendum entered by Jael Rothman R.N. 11/24/19 18:54: No word from family members in room. This sign writer letterer or painter enters room for patient/family check. Pt has not stirred per pt's son in room. Pt in bed with eyes closed. Mouth breathing @ rate of 20 breaths per minute. No apneic periods observed. Herrera with scant amount dark candy urine. Addendum entered by Jael Rothman R.N. 11/24/19 17:49: Per pharmacistRadha, following conversation with Dr. Frost, iv dilaudid continuous infusion now on emar along with iv fluids @ tko rate if family (pt's spouse) agrees to this intervention. Thus far, no response from family after their expressed desire to think about it. Addendum entered by Jael Rothman R.N. 11/24/19 17:15: Dr. Frost discusses with this sign writer letterer or painter changing pt to iv continuous dilaudid to manage pt's end of life symptoms; pain, agitation. Requests this sign writer letterer or painter discuss with pt's family members (spouse and son in room) this option and why it is used in the hospital for end of life care. Of note: Dr. Frost was informed by this sign writer letterer or painter that patient's spouse did request staff not provide any care or interventions to patient last evening while pt was resting, but save these for when pt was awake. Last evening, spouse did call this sign writer letterer or painter in to room when pt was wakeful, wincing, restless and obviously uncomfortable and attempting to verbalize. Oral methadone and iv lorazepam were then administered with excellent results. PharmacistRadha, in to room to answer questions re dilaudid as per family request. No decision yet at this time. Original Note: Dr. Frost in to see patient and pt's spouse, Tamica, who is present in pt's room. Pt currently resting quietly in bed with eyes closed. Discussed with pt's spouse, Dr. Margot Davey's suggestion to advance pt's catheter and flush to promote comfort and draining of catheter. Spouse states does not want pt awakened for this at this time. Informed spouse this sign writer letterer or painter can medicate pt for any discomfort that may be experienced during catheter care as previous stated and pt's spouse declines. Spouse does not want any interventions while pt sleeping as per spouse's statement. Requested spouse alert this sign writer letterer or painter for any needs/desires r/t pt's care, wellbeing and that of the family.
--- NOTE | 2019-11-24 16:22 | P.PN_ITS ---
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 The patient is comatose and unconscious. The patient's spouse Doreen is at bedside and reports that the patient has been pulling on Herrera catheter and believes this is causing him discomfort. Plan to advance catheter to assure that this is in the bladder. The patient is tachypneic and discuss treating signs of discomfort for which patient's spouse relays that the patient has a paradoxical effect to morphine and requests this not be used and the patient not be medicated unless he is awake and agitated which has made it difficult for nursing staff to treat signs of discomfort. The patient continues to appear rather imminent and will likely in the hospital within the next 24 to 48 sabrina rs. Exam Vital Signs (past 8 hours): Oxygen Delivery Method Room Air Oxygen Flow Rate 2 Narrative Exam Narrative: General: Elderly cachectic male lying in bed, comatose, appears comfortable, patient is dying and appears imminent. HEENT: Normocephalic, atraumatic. Bitemporal muscle wasting. Cardiovascular: Heart sounds distant but appears rhythm and rate without murmurs, rubs, or gallops appreciated Pulmonary: Clear to auscultation bilaterally without crackles, wheezes, or rhonchi. Upper airway rhonchi. Tachypneic. 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 1. End-stage metastatic pancreatic cancer, present on admission. Active. -Continue palliative care. 2. Palliative care for intractable cancer pain, present on admission. Active. -Continue palliative care medications including: methadone concentrate 2.5 mg twice daily and added methadone concentrate 2.5 mg daily as needed for breakthrough pain and not within 4 hours of schedule dose, hydromorphone 0.25 to 0.5 mg every 4 hours as needed for pain, lorazepam 1 mg increased from every 1 hour to every 30 minutes as needed for anxiety or agitation, ondansetron 4 mg every 4 hours as needed for nausea, and atropine drops and scopolamine patch every 72 hours as needed for 6 excessive secretions. Discontinued morphine as patient's spouse reports the patient has a paradoxical effect. -Continue Herrera catheter for comfort. Plan to adjust catheter to assure that it is correctly placed. Code status: DNR/DNI VTE prophylaxis: Contraindicated Disposition: Patient likely to in the next 24-48 hours. Quality VTE Deep Vein Thrombosis/Pulmonary Embolism Present on Admission: No
--- NOTE | 2019-11-25 00:05 | PC.NURSE ---
Checked on patient [id number] and 0005, appears comfortable, no s/s pain in sleeping face, or body movements. Relaxed arms and legs.
--- NOTE | 2019-11-25 07:23 | P.DN_ITS ---
Discharge Summary History of Illness Narrative: Written by Dr. Bennett: This is an 84 year old male with end stage metastatic Pancreatic Carcinoma. He has known metastasis to the lungs and to the brain. He has been on hospice since his diagnosis back in August, living at home with his . This morning when his found him, head down in the portable commode, she decided to bring him to the hospital due to weakness with intractable pain and her inability to continue caring for him at home on hospice. He has been on methadone 2.5 mg twice a day but has not been dosed with the morphine because he gets ?fidgety? when he takes morphine. She reports that an admission to the hospice house in [place] was considered but was impractical for his family who did not feel they could drive that distance. She says she is not aware of the GIP benefit for inpatient care on hospice and so she apparently signed a hospice revocation this morning. She is insisting that he receive a Herrera catheter. She tells me that she rejected the possibility of home health aides caring for him at home because ?they would not do anything more than hospice does at their visits. Hospital Course Date of Admission: 11/22/19 19:02 Date of : 11/25/19 Primary care provider: ZACH Johnson Consults: 11/22/19 17:12 Consult to VOLCANOLOGY TEACHER - Baby Counselor Stat Comment: 11/23/19 22:43 Consult to Dietitian, Adult Routine Comment: Reason For Exam: pt is end of life. Consult not needed. Discharge provider: Tracy Frost M.A., D.O. Discharge Diagnosis: Stage IV metastatic pancreatic cancer Hospital Course: Marina Rendon was an 84-year-old male admitted to the hospital for intractable cancer pain and inability for his spouse and family to care for him at home. The patient had advanced widely metastatic stage IV pancreatic cancer. Palliative care medications were continued for symptomatic control including methadone and IV hydromorphone titrated to control pain and air hunger, IV lorazepam to control agitation/anxiety, antiemetic with Zofran as needed for nausea and anti-secretory with scopolamine transdermal patch and atropine gtt to control secretions. The patient on 11/25/2019 at 7:00 a.m.
--- NOTE | 2019-11-25 07:42 | PC.NURSE ---
At change of shift notified by Anu coordinator RN that patient had just passed. Michaelnicholas day restaurant shift supervisor RN in to evaluate patient, patient not breathing and had no heart tones. Time of at 0700. Dr. Frost notified to pronounce. Patient's at bedside taking some time with patient and notifying her family. Will continue to offer support to family as needed.
--- NOTE | 2019-11-25 09:38 | PC.NURSE ---
took all belongings home. Gal notified for pickling tank operator of patients remains per familys requests.
== END 2019-11-25 07:00 | disposition expired | DRG 948 ==
LOC: ED 18:23 → AC 11-23 07:46
PROVIDERS: Family Medicine; Admitting Provider Internal Medicine; Emergency Provider Emergency Medicine; PCP Nurse Practitioner Family; Referring Provider Emergency Medicine; Visit Provider Internal Medicine
DX: G89.3 Neoplasm related pain (acute) (chronic) (principal); C25.0 Malignant neoplasm of head of pancreas; C79.9 Secondary malignant neoplasm of unspecified site; Z68.1 Body mass index [BMI] 19.9 or less, adult; C79.31 Secondary malignant neoplasm of brain; C78.00 Secondary malignant neoplasm of unspecified lung; R40.20 Unspecified coma; R64 Cachexia; Z85.819 Personal history of malignant neoplasm of unspecified site of lip, oral cavity, and pharynx; Z66 Do not resuscitate; Z51.5 Encounter for palliative care
CPT/HCPCS: 87635; 96374; 99284; J2060